=== PATIENT | female | born 1955 | race Caucasian/White ===

== ENCOUNTER 2022-06-11 09:07 | Outpatient (CLI) | payer BC | END 2022-06-11 09:08 | disposition home or self-care (01) | LOC: CSHULT 09:07 | PROVIDERS: ATTEND Student in an Organized Health Care Education/Training Program | DX: R92.8 Other abnormal and inconclusive findings on diagnostic imaging of breast (principal) | CPT/HCPCS: G0279 ==

== ENCOUNTER → 2022-06-21 | Day surgery (SDC) | payer BC | LOC: CSHULT 14:21 | PROVIDERS: ATTEND Student in an Organized Health Care Education/Training Program | PROC: 0HBT3ZX Excision of Right Breast, Percutaneous Approach, Diagnostic (ICD-10-PCS; principal; 2022-06-21) | DX: C50.811 Malignant neoplasm of overlapping sites of right female breast (principal); N60.81 Other benign mammary dysplasias of right breast; N60.11 Diffuse cystic mastopathy of right breast | CPT/HCPCS: 19285; 88305; 88341; 88342 ==

== ENCOUNTER 2022-07-04 06:57 | Day surgery (SDC) | payer BC ==
[2022-07-04] MEDS ORDERED: Ketorolac Tromethamine 30 MG/ML VIAL ONE (10:23)
[2022-07-04] MEDS ORDERED: Fentanyl 100 MCG/2 ML VIAL ONE (10:23)
[2022-07-04] MEDS ORDERED: Esmolol 100 MG/10 ML VIAL ONE (10:23)
[2022-07-04] MEDS ORDERED: Lidocaine 1% PF 5 ML VIAL ONE (10:23)
[2022-07-04] MEDS ORDERED: Ondansetron PF 4 MG/2 ML Vial ONE (10:23)
[2022-07-04] MEDS ORDERED: Dexamethasone 4 mg/ml Vial ONE (10:23)
[2022-07-04] MEDS ORDERED: CEFAZOLIN 1 GM VIAL ONE (10:35)
[2022-07-04] MEDS ORDERED: Bupivacaine HCl 0.5%/Epinephrine 1:200,000/PF 30 ml Vial ONE (10:35)
[2022-07-04] MEDS ORDERED: Isosulfan Blue 50 MG/5 ML VIAL ONE (10:35)
[2022-07-04] MEDS ORDERED: Midazolam HCl 2 mg/2 ml Vial ONE (10:35)
[2022-07-04] MEDS ORDERED: Acetaminophen 325 MG TAB PO PRN (11:53)
[2022-07-04] MEDS ORDERED: HYDROcodone/Acetaminophen 5/325 mg Tablet PO PRN ×2 (11:53)
[2022-07-04] MEDS ORDERED: HYDROcodone/Acetaminophen 5/325 mg Tablet ONE (12:51)
== END 2022-07-04 13:35 | disposition home or self-care (01) ==
LOC: CSHNM 06:57
PROVIDERS: ATTEND Surgery
PROC: 07B50ZZ Excision of Right Axillary Lymphatic, Open Approach (ICD-10-PCS; principal; 2022-07-04)
PROC: C71LYZZ Planar Nuclear Medicine Imaging of Upper Chest Lymphatics using Other Radionuclide (ICD-10-PCS; principal; 2022-07-04)
PROC: 0HBT0ZZ Excision of Right Breast, Open Approach (ICD-10-PCS; principal; 2022-07-04)
DX: C50.811 Malignant neoplasm of overlapping sites of right female breast (principal); Z17.0 Estrogen receptor positive status [ER+]; N60.21 Fibroadenosis of right breast; N60.31 Fibrosclerosis of right breast; F41.8 Other specified anxiety disorders; Z79.899 Other long term (current) drug therapy
CPT/HCPCS: 19281; 19282; 76098; 78195; 88309; 88341; 88342; A9541; C1713; J0690; J1100; J1885; J2250; J2405; J3010; Q9968